=== PATIENT | male | born 1990 | race Two or more races ===

== ENCOUNTER 2021-03-30 01:54 | Emergency (ER) | payer SELFPAY ==
[~2021-03-30] VITALS: Ht 172.7 cm; Wt 86.2 kg
--- NOTE | 2021-03-30 02:21 | NUR ---
BIB SELF C/O RIGHT HAND LACERATIONS WHILE WASHING DISHES. PT ALERT ORIENTED X4 RR EVEN UNLABORED NO SOB NOTED. PT CONNECTED TO CARDIAC AND POX MONITOR.
[2021-03-30] MEDS ORDERED: LIDOCAINE 1%-EPI 1:100,000 20 ML VIAL ONE (02:27)
[2021-03-30] MEDS ORDERED: LIDOCAINE/PRILOCAINE (5GM) 5 GM TUBE TP ONE ×2 (02:30→02:41)
[2021-03-30] MEDS ORDERED: TDAP [DIPH/PERTUSSIS/TET] 0.5 ML VIAL IM ONE ×2 (02:30→02:41)
[2021-03-30] MEDS ORDERED: LIDOCAINE 1%-EPI 1:100,000 20 ML VIAL TP ONE (02:30)
--- NOTE | 2021-03-30 02:35 | NUR ---
PT BEING SEEN BY AT THIS TIME
--- NOTE | 2021-03-30 02:51 | NUR ---
IN ROOM TREATING PT.
[2021-03-30 03:10] VITALS: BP 131/80
--- NOTE | 2021-03-30 03:26 | NUR ---
Patient discharged to home in stable condition. Written and verbal after care instructions given. Patient verbalizes understanding of instruction.
== END 2021-03-30 03:27 | disposition home or self-care (01) ==
LOC: ER 01:54
DX: S61.411A Laceration without foreign body of right hand, initial encounter (principal); W26.0XXA Contact with knife, initial encounter; Y93.89 Activity, other specified; Y92.89 Other specified places as the place of occurrence of the external cause; Y99.8 Other external cause status
CPT/HCPCS: 12001; 90471; 90715; 99283; J3490

== ENCOUNTER 2021-04-18 16:07 | Emergency (ER) | payer SELFPAY ==
[~2021-04-18] VITALS: Ht 172.7 cm; Wt 86.2 kg
[2021-04-18 16:24] VITALS: BP 120/76
--- NOTE | 2021-04-18 16:25 | NUR ---
BIBS for for suture removal. R hand laceration repaired 16 days ago. No bleeding and no s/s infection noted. Will continue to monitor the patient.
--- NOTE | 2021-04-18 16:32 | NUR ---
Patient discharged to home in stable condition. Written and verbal after care instructions given. Patient verbalizes understanding of instruction.
== END 2021-04-18 16:32 | disposition home or self-care (01) ==
LOC: ER 16:08
DX: S61.411D Laceration without foreign body of right hand, subsequent encounter (principal); Z60.2 Problems related to living alone; W26.0XXD Contact with knife, subsequent encounter